=== PATIENT | male | born 1935 | race Caucasian/White ===

== ENCOUNTER 2017-04-23 18:30 | Inpatient (IN) | payer MEDICARE ==
[~2017-04-23] VITALS: Ht 167.6 cm; Wt 76.2 kg
[~2017-04-23 18:30] MED LIST: ASPI325; ASPI325 PO; Bystolic2.5 MG PO; CENTRUM SILVER1 EAC2 PO; CEPH500 PO; CLOP75 PO; FLUSAL5005 INH; GABA100 PO; LIDO700A20 TOP; MECL12.5 PO; METO50ER PO; Norco 5-325 Ta1 EACH PO; SENN187 PO; Zofran8 MG PO
[2017-04-23 19:50] LABS: BASOPHILS ABSOLUTE AUTO 0.01 K/mm3 (0.00-0.23); BASOPHILS PERCENT AUTO 0 % (0-2); EOSINOPHILS ABSOLUTE AUTO 0.17 K/mm3 (0.00-0.68); EOSINOPHILS PERCENT AUTO 3 % (0-6); Hematocrit 35.5 % (37.0-53.0); Hemoglobin 11.8 g/dL (13.5-17.5); IMMATURE GRAN ABSOLUTE AUTO 0.01 K/mm3 (0.00-0.10); IMMATURE GRAN PERCENT AUTO 0 % (0-1); LYMPHOCYTES ABSOLUTE AUTO 1.57 K/mm3 (0.84-5.20); LYMPHOCYTES PERCENT AUTO 28 % (21-46); MONOCYTES ABSOLUTE AUTO 0.33 K/mm3 (0.16-1.47); MONOCYTES PERCENT AUTO 6 % (4-13); Mean Corpuscular HGB 28.3 pg (26.0-34.0); Mean Corpuscular HGB Conc 33.2 g/dL (31.5-36.5); Mean Corpuscular Volume 85 fL (80-100); NEUTROPHILS ABSOLUTE AUTO 3.51 K/mm3 (1.96-9.15); NEUTROPHILS PERCENT AUTO 63 % (41-73); Platelet Count 273 K/mm3 (150-400); RDW Coefficient Variation 13.3 % (11.7-14.2); Red Blood Cell Count 4.17 M/mm3 (4.30-5.90)
[2017-04-23 20:06] LABS: Alanine Aminotransfer (ALT/SGP 15 U/L (12-78); Albumin/Globulin Ratio 0.8 (0.8-1.8); Alk Phos 90 U/L (50-136); Anion Gap 7 mmol/L (6-16); Aspartate Aminotrans (AST/SGOT 17 U/L (12-37); Bilirubin, Total 0.4 mg/dL (0.1-1.0); Blood Urea Nitrogen 10 mg/dL (8-24); Bun/Creatinine Ratio 11.6 (12.0-20.0); CO2, Blood 27 mmol/L (21-32); Chloride, Blood 105 mmol/L (98-108); Creatinine, Blood 0.86 mg/dL (0.60-1.20); Globulin, Blood 3.6 g/dL (2.2-4.0); Glomerular Filtration Rate >60 (60-); Glucose, Blood 87 mg/dL (70-99); Potassium, Blood 3.4 mmol/L (3.5-5.5); Sodium, Blood 139 mmol/L (136-145); Total Protein, Blood 6.6 g/dL (6.4-8.2)
[2017-04-23 20:41] LABS: Source, Urine Clean Catch
[2017-04-23 20:43] LABS: Appearance, Urine Cloudy (Clear); Bilirubin, Urine Neg (Neg); Blood, Urine 5+ (Neg); Color, Urine Yellow (P-Yellow); Glucose Qualitative, Urine Neg (Neg); Ketones, Urine 2+ (Neg); Leukocyte Esterase, Urine 3+ (Neg); Nitrite, Urine Pos (Neg); Protein, Urine 3+ (Neg); Specific Gravity, Urine 1.025 (1.003-1.022); Urobilinogen, Urine NORM (Normal)
[2017-04-23] MEDS ORDERED: CALCIUM 500 +1 EAC2 PO (20:46)
[2017-04-23 20:55] LABS: Bacteria Many /hpf; Squamous Epithelial Cells Not Seen /hpf (Few); White Blood Cells, Urine 50-100 /hpf (0-5)
[2017-04-24 05:16] LABS: BASOPHILS ABSOLUTE AUTO 0.01 K/mm3 (0.00-0.23); BASOPHILS PERCENT AUTO 0 % (0-2); EOSINOPHILS ABSOLUTE AUTO 0.21 K/mm3 (0.00-0.68); EOSINOPHILS PERCENT AUTO 4 % (0-6); Hematocrit 33.4 % (37.0-53.0); IMMATURE GRAN PERCENT AUTO 0 % (0-1); LYMPHOCYTES ABSOLUTE AUTO 1.63 K/mm3 (0.84-5.20); LYMPHOCYTES PERCENT AUTO 30 % (21-46); MONOCYTES ABSOLUTE AUTO 0.36 K/mm3 (0.16-1.47); MONOCYTES PERCENT AUTO 7 % (4-13); Mean Corpuscular HGB 28.2 pg (26.0-34.0); Mean Corpuscular HGB Conc 32.9 g/dL (31.5-36.5); Mean Corpuscular Volume 86 fL (80-100); Mean Platelet Volume 8.8 fL (9.1-12.4); NEUTROPHILS ABSOLUTE AUTO 3.29 K/mm3 (1.96-9.15); NEUTROPHILS PERCENT AUTO 60 % (41-73); Platelet Count 225 K/mm3 (150-400); RDW Coefficient Variation 13.5 % (11.7-14.2); RDW Standard Deviation 41.3 fL (35.1-46.3)
[2017-04-24 06:05] LABS: Anion Gap 10 mmol/L (6-16); Blood Urea Nitrogen 9 mg/dL (8-24); Bun/Creatinine Ratio 12.6 (12.0-20.0); CO2, Blood 24 mmol/L (21-32); Calcium, Blood 8.1 mg/dL (8.5-10.1); Chloride, Blood 106 mmol/L (98-108); Creatinine, Blood 0.72 mg/dL (0.60-1.20); Glomerular Filtration Rate >60 (60-); Glucose, Blood 88 mg/dL (70-99); Potassium, Blood 3.3 mmol/L (3.5-5.5); Sodium, Blood 140 mmol/L (136-145)
[2017-04-24 17:58] LABS: Source, Urine Catheter
[2017-04-24 18:05] LABS: Appearance, Urine Cloudy (Clear); Bilirubin, Urine Neg (Neg); Blood, Urine 5+ (Neg); Color, Urine Red (P-Yellow); Glucose Qualitative, Urine Neg (Neg); Ketones, Urine Neg (Neg); Leukocyte Esterase, Urine 3+ (Neg); Nitrite, Urine Neg (Neg); Protein, Urine 3+ (Neg); Urobilinogen, Urine NORM (Normal)
[2017-04-24 18:36] LABS: Red Blood Cells, Urine TNTC /hpf (0-2); White Blood Cells, Urine 50-100 /hpf (0-5)
[2017-04-24 18:37] LABS: Bacteria Few /hpf; Squamous Epithelial Cells Not Seen /hpf (Few)
[2017-04-26 06:09] LABS: Anion Gap 7 mmol/L (6-16); Blood Urea Nitrogen 9 mg/dL (8-24); Bun/Creatinine Ratio 11.3 (12.0-20.0); CO2, Blood 25 mmol/L (21-32); Calcium, Blood 8.4 mg/dL (8.5-10.1); Chloride, Blood 105 mmol/L (98-108); Glomerular Filtration Rate >60 (60-); Glucose, Blood 101 mg/dL (70-99); Sodium, Blood 137 mmol/L (136-145)
[2017-04-26] MEDS ORDERED: DOCU100 PO (12:24)
[2017-04-26] MEDS ORDERED: CENTRUM SILVER1 EAC2 PO (12:27)
[2017-04-26] MEDS ORDERED: MILK OF MAGNESIUM PO (12:27)
[2017-04-26] MEDS ORDERED: LEVFLO500 PO (12:28)
[2017-04-26] MEDS ORDERED: POTCHL10ER PO (12:28)
[2017-11-21] MEDS ORDERED: CEFP200 PO (14:22)
[2017-11-21] MEDS ORDERED: HYDR1TAB94 PO (14:36)
[2017-11-21] MEDS ORDERED: BAYER CHEWABLE81 MG PO (14:37)
[2017-11-21] MEDS ORDERED: TRAM50 PO (14:37)
[2017-11-21] MEDS ORDERED: MOVE FREE JOIN1 EACH PO (14:38)
[2017-11-21] MEDS ORDERED: POLY500 PO (14:38)
[2017-11-21] MEDS ORDERED: Hair, Skin & N1 EACH PO (14:38)
[2018-04-17] MEDS ORDERED: OXYC10TA19 PO (11:17)
== END 2017-04-26 14:02 | DRG 700 ==
LOC: ER 18:30 → MEDS 22:55
PROVIDERS: Emergency Medicine; Family Medicine; Internal Medicine
DX: T83.511A Infection and inflammatory reaction due to indwelling urethral catheter, initial encounter (principal); R31.9 Hematuria, unspecified; B96.1 Klebsiella pneumoniae [K. pneumoniae] as the cause of diseases classified elsewhere; N39.0 Urinary tract infection, site not specified; B96.89 Other specified bacterial agents as the cause of diseases classified elsewhere; R53.81 Other malaise; E87.6 Hypokalemia; G89.29 Other chronic pain; M54.5 Low back pain; R29.6 Repeated falls; I25.2 Old myocardial infarction; M54.32 Sciatica, left side; M54.31 Sciatica, right side; Z79.82 Long term (current) use of aspirin; Z79.899 Other long term (current) drug therapy; Z85.46 Personal history of malignant neoplasm of prostate
CPT/HCPCS: 36415; 70450; 71020; 72125; 72170; 80048; 80053; 81001; 84443; 85025; 87086; 96361; 96374; 96375; 97110; 97162; 97166; 97530; 97535; 99285; G8978; G8979; G8987; G8988; J0696; J1650; J2270; J7030; J7050

== ENCOUNTER 2017-06-11 13:13 | Emergency (ER) | payer MEDICARE ==
[~2017-06-11] VITALS: Ht 167.6 cm; Wt 78.5 kg
[~2017-06-11 13:13] MED LIST changes: +CALCIUM 500 +1 EAC2 PO; +DOCU100 PO; +LEVFLO500 PO; +MILK OF MAGNESIUM PO; +POTCHL10ER PO
[2017-06-11] MEDS ORDERED: ACET325 PO (13:40)
[2017-06-11] MEDS ORDERED: BENADRYL25 MG PO (13:41)
[2017-06-11] MEDS ORDERED: BISA10S PR (13:41)
[2017-06-11] MEDS ORDERED: CVS DISPOSABLE399 ML (13:42)
[2017-06-11] MEDS ORDERED: SENN187 PO (13:43)
[2017-06-11] MEDS ORDERED: PEDIA-LAX400 MG PO (13:43)
[2017-06-11] MEDS ORDERED: TRAM50 PO (13:44)
[2017-06-11 14:22] LABS: Source, Urine Voided
[2017-06-11 14:25] LABS: Appearance, Urine Bloody (Clear); Bilirubin, Urine Neg (Neg); Blood, Urine 4+ (Neg); Color, Urine Red (P-Yellow); Glucose Qualitative, Urine Neg (Neg); Ketones, Urine Neg (Neg); Leukocyte Esterase, Urine Neg (Neg); Nitrite, Urine Neg (Neg); Protein, Urine 4+ (Neg); Specific Gravity, Urine 1.015 (1.003-1.022); Urobilinogen, Urine NORM (Normal)
[2017-06-11 14:35] LABS: Calcium, Ionized (POC) 1.26 mmol/L (1.10-1.46); Chloride (POC) 98 mmol/L (98-108); Creatinine (POC) 0.8 mg/dL (0.8-1.3); Glucose (ISTAT POC) 132 mg/dL (70-99); Hemoglobin (POC) 11.9 g/dL (13.5-17.5); Potassium (POC) 3.6 mmol/L (3.5-5.5); Sodium (POC) 138 mmol/L (135-148); Total CO2 (POC) 24 mmol/L (21-32)
[2017-06-11 14:37] LABS: Bacteria Not Seen /hpf; Red Blood Cells, Urine TNTC /hpf (0-2); Squamous Epithelial Cells Not Seen /hpf (Few); White Blood Cells, Urine Not Seen /hpf (0-5)
[2017-06-11 15:23] LABS: BASOPHILS ABSOLUTE AUTO 0.02 K/mm3 (0.00-0.23); BASOPHILS PERCENT AUTO 0 % (0-2); EOSINOPHILS ABSOLUTE AUTO 0.01 K/mm3 (0.00-0.68); EOSINOPHILS PERCENT AUTO 0 % (0-6); Hematocrit 37.5 % (37.0-53.0); Hemoglobin 12.4 g/dL (13.5-17.5); IMMATURE GRAN ABSOLUTE AUTO 0.04 K/mm3 (0.00-0.10); IMMATURE GRAN PERCENT AUTO 0 % (0-1); LYMPHOCYTES ABSOLUTE AUTO 0.71 K/mm3 (0.84-5.20); LYMPHOCYTES PERCENT AUTO 7 % (21-46); MONOCYTES PERCENT AUTO 3 % (4-13); Mean Corpuscular HGB 28.1 pg (26.0-34.0); Mean Corpuscular HGB Conc 33.1 g/dL (31.5-36.5); Mean Corpuscular Volume 85 fL (80-100); Mean Platelet Volume 9.3 fL (9.1-12.4); NEUTROPHILS ABSOLUTE AUTO 9.14 K/mm3 (1.96-9.15); NEUTROPHILS PERCENT AUTO 90 % (41-73); Platelet Count 301 K/mm3 (150-400); RDW Coefficient Variation 14.5 % (11.7-14.2); RDW Standard Deviation 44.7 fL (35.1-46.3); Red Blood Cell Count 4.41 M/mm3 (4.30-5.90); White Blood Cell Count 10.22 K/mm3 (4.00-11.30)
[2017-06-11 16:28] LABS: Alanine Aminotransfer (ALT/SGP 13 U/L (12-78); Albumin, Blood 3.3 g/dL (3.4-5.0); Albumin/Globulin Ratio 0.9 (0.8-1.8); Alk Phos 88 U/L (50-136); Anion Gap 10 mmol/L (6-16); Aspartate Aminotrans (AST/SGOT 15 U/L (12-37); Bilirubin, Total 0.5 mg/dL (0.1-1.0); Blood Urea Nitrogen 12 mg/dL (8-24); Bun/Creatinine Ratio 16.9 (12.0-20.0); CO2, Blood 25 mmol/L (21-32); Calcium, Blood 9.6 mg/dL (8.5-10.1); Chloride, Blood 103 mmol/L (98-108); Creatinine, Blood 0.71 mg/dL (0.60-1.20); Globulin, Blood 3.7 g/dL (2.2-4.0); Glomerular Filtration Rate >60 (60-); Glucose, Blood 121 mg/dL (70-99); Potassium, Blood 3.6 mmol/L (3.5-5.5); Sodium, Blood 138 mmol/L (136-145)
[2017-11-21] MEDS ORDERED: CEFP200 PO (14:22)
[2017-11-21] MEDS ORDERED: HYDR1TAB94 PO (14:36)
[2017-11-21] MEDS ORDERED: TRAM50 PO (14:37)
[2017-11-21] MEDS ORDERED: BAYER CHEWABLE81 MG PO (14:37)
[2017-11-21] MEDS ORDERED: POLY500 PO (14:38)
[2017-11-21] MEDS ORDERED: Hair, Skin & N1 EACH PO (14:38)
[2017-11-21] MEDS ORDERED: MOVE FREE JOIN1 EACH PO (14:38)
== END 2017-06-11 18:12 | disposition short-term general hospital (02) ==
LOC: ER 13:13
PROVIDERS: Emergency Medicine
DX: R31.9 Hematuria, unspecified (principal); Z79.899 Other long term (current) drug therapy; Z79.82 Long term (current) use of aspirin; Z79.2 Long term (current) use of antibiotics
CPT/HCPCS: 36415; 51702; 76857; 80047; 80053; 81001; 85014; 85025; 96374; 96375; 96376; 99285; J1170; J2405

== ENCOUNTER 2017-07-02 19:39 | Emergency (ER) | payer MEDICARE ==
[~2017-07-02] VITALS: Ht 167.6 cm; Wt 72.6 kg
[~2017-07-02 19:39] MED LIST changes: +ACET325 PO; +BENADRYL25 MG PO; +BISA10S PR; +CVS DISPOSABLE399 ML; +PEDIA-LAX400 MG PO; +TRAM50 PO
[2017-07-02 20:19] LABS: Source, Urine Catheter
[2017-07-02 20:23] LABS: Appearance, Urine Turbid (Clear); Bilirubin, Urine Neg (Neg); Blood, Urine 5+ (Neg); Color, Urine Amber (P-Yellow); Glucose Qualitative, Urine Neg (Neg); Ketones, Urine Neg (Neg); Leukocyte Esterase, Urine 3+ (Neg); Nitrite, Urine Neg (Neg); Protein, Urine 3+ (Neg); Specific Gravity, Urine 1.015 (1.003-1.022); Urobilinogen, Urine NORM (Normal)
[2017-07-02] MEDS ORDERED: HYDR1TAB94 PO (20:25)
[2017-07-02] MEDS ORDERED: CYCL10 PO (20:27)
[2017-07-02] MEDS ORDERED: HYOS.125 PO (20:29)
[2017-07-02 20:37] LABS: Bacteria Mod /hpf; Red Blood Cells, Urine 25-50 /hpf (0-2); Squamous Epithelial Cells Rare /hpf (Few)
[2017-07-02] MEDS ORDERED: CEFP200 PO (20:49)
[2017-11-21] MEDS ORDERED: CEFP200 PO (14:22)
[2017-11-21] MEDS ORDERED: HYDR1TAB94 PO (14:36)
[2017-11-21] MEDS ORDERED: TRAM50 PO (14:37)
[2017-11-21] MEDS ORDERED: BAYER CHEWABLE81 MG PO (14:37)
[2017-11-21] MEDS ORDERED: MOVE FREE JOIN1 EACH PO (14:38)
[2017-11-21] MEDS ORDERED: POLY500 PO (14:38)
[2017-11-21] MEDS ORDERED: Hair, Skin & N1 EACH PO (14:38)
== END 2017-07-02 21:56 | disposition home or self-care (01) ==
LOC: ER 19:39
PROVIDERS: Emergency Medicine
DX: T83.091A Other mechanical complication of indwelling urethral catheter, initial encounter (principal); N39.0 Urinary tract infection, site not specified; N32.0 Bladder-neck obstruction; I25.10 Atherosclerotic heart disease of native coronary artery without angina pectoris; Z79.899 Other long term (current) drug therapy; Z79.82 Long term (current) use of aspirin
CPT/HCPCS: 51702; 51798; 81001; 87077; 87086; 87186; 99283

== ENCOUNTER 2017-07-30 23:34 | Emergency (ER) | payer MEDICARE ==
[~2017-07-30] VITALS: Ht 167.6 cm; Wt 72.6 kg
[~2017-07-30 23:34] MED LIST changes: +CEFP200 PO; +CYCL10 PO; +HYDR1TAB94 PO; +HYOS.125 PO
[2017-07-31 00:26] LABS: Source, Urine Catheter
[2017-07-31 00:28] LABS: Bilirubin, Urine Neg (Neg); Blood, Urine 5+ (Neg); Glucose Qualitative, Urine Neg (Neg); Ketones, Urine Neg (Neg); Leukocyte Esterase, Urine 3+ (Neg); Nitrite, Urine Pos (Neg); Protein, Urine 3+ (Neg); Urobilinogen, Urine NORM (Normal)
[2017-07-31 00:33] LABS: Appearance, Urine Cloudy (Clear); Color, Urine Amber (P-Yellow); White Blood Cells, Urine TNTC /hpf (0-5)
[2017-07-31 00:34] LABS: Red Blood Cells, Urine TNTC /hpf (0-2)
[2017-07-31 00:35] LABS: Bacteria Many /hpf; Squamous Epithelial Cells Not Seen /hpf (Few)
== END 2017-07-31 01:15 | disposition home or self-care (01) ==
LOC: ER 23:34
PROVIDERS: Emergency Medicine
DX: T83.091A Other mechanical complication of indwelling urethral catheter, initial encounter (principal); Z91.018 Allergy to other foods; Z79.899 Other long term (current) drug therapy; Z79.82 Long term (current) use of aspirin; Z85.46 Personal history of malignant neoplasm of prostate
CPT/HCPCS: 51702; 81001; 87077; 87086; 87147; 87186; 99283

== ENCOUNTER 2017-08-15 03:16 | Emergency (ER) | payer MEDICARE | END 2017-08-15 04:29 | disposition home or self-care (01) | LOC: ER 03:16 | DX: T83.091A Other mechanical complication of indwelling urethral catheter, initial encounter (principal); Z91.018 Allergy to other foods; Z79.82 Long term (current) use of aspirin; Z79.899 Other long term (current) drug therapy; Z79.891 Long term (current) use of opiate analgesic ==

== ENCOUNTER 2017-08-15 12:24 | Emergency (ER) | payer MEDICARE ==
[~2017-08-15] VITALS: Ht 167.6 cm; Wt 72.6 kg
[2017-08-15 13:27] LABS: Source, Urine Catheter
[2017-08-15 13:35] LABS: Appearance, Urine Hazy (Clear); Bilirubin, Urine Neg (Neg); Blood, Urine 5+ (Neg); Color, Urine Red (P-Yellow); Glucose Qualitative, Urine Neg (Neg); Ketones, Urine 1+ (Neg); Leukocyte Esterase, Urine Neg (Neg); Nitrite, Urine Neg (Neg); Protein, Urine 4+ (Neg); Specific Gravity, Urine 1.015 (1.003-1.022); Urobilinogen, Urine NORM (Normal)
[2017-08-15 13:42] LABS: Bacteria Not Seen /hpf; Red Blood Cells, Urine TNTC /hpf (0-2); Squamous Epithelial Cells Not Seen /hpf (Few); White Blood Cells, Urine Not Seen /hpf (0-5)
[2017-08-15 14:45] LABS: BASOPHILS ABSOLUTE AUTO 0.02 K/mm3 (0.00-0.23); BASOPHILS PERCENT AUTO 0 % (0-2); EOSINOPHILS PERCENT AUTO 2 % (0-6); Hematocrit 31.3 % (37.0-53.0); Hemoglobin 9.8 g/dL (13.5-17.5); IMMATURE GRAN ABSOLUTE AUTO 0.02 K/mm3 (0.00-0.10); IMMATURE GRAN PERCENT AUTO 0 % (0-1); LYMPHOCYTES ABSOLUTE AUTO 1.57 K/mm3 (0.84-5.20); LYMPHOCYTES PERCENT AUTO 25 % (21-46); MONOCYTES ABSOLUTE AUTO 0.39 K/mm3 (0.16-1.47); MONOCYTES PERCENT AUTO 6 % (4-13); Mean Corpuscular HGB 25.7 pg (26.0-34.0); Mean Corpuscular HGB Conc 31.3 g/dL (31.5-36.5); Mean Corpuscular Volume 82 fL (80-100); Mean Platelet Volume 8.9 fL (9.1-12.4); NEUTROPHILS ABSOLUTE AUTO 4.12 K/mm3 (1.96-9.15); NEUTROPHILS PERCENT AUTO 66 % (41-73); Platelet Count 288 K/mm3 (150-400); RDW Coefficient Variation 14.5 % (11.7-14.2); RDW Standard Deviation 42.5 fL (35.1-46.3); Red Blood Cell Count 3.81 M/mm3 (4.30-5.90); White Blood Cell Count 6.22 K/mm3 (4.00-11.30)
[2017-08-15 14:58] LABS: International Normalized Ratio 1.01; Prothrombin Time Results 10.5 Sec (9.7-11.5)
[2017-08-15 15:08] LABS: Alanine Aminotransfer (ALT/SGP 12 U/L (12-78); Albumin, Blood 2.8 g/dL (3.4-5.0); Albumin/Globulin Ratio 0.8 (0.8-1.8); Alk Phos 73 U/L (50-136); Anion Gap 6 mmol/L (6-16); Aspartate Aminotrans (AST/SGOT 16 U/L (12-37); Bilirubin, Total 0.4 mg/dL (0.1-1.0); Blood Urea Nitrogen 11 mg/dL (8-24); Bun/Creatinine Ratio 12.1 (12.0-20.0); CO2, Blood 27 mmol/L (21-32); Calcium, Blood 9.4 mg/dL (8.5-10.1); Chloride, Blood 105 mmol/L (98-108); Creatinine, Blood 0.91 mg/dL (0.60-1.20); Globulin, Blood 3.6 g/dL (2.2-4.0); Glomerular Filtration Rate >60 (60-); Glucose, Blood 87 mg/dL (70-99); Potassium, Blood 4.3 mmol/L (3.5-5.5); Sodium, Blood 138 mmol/L (136-145); Total Protein, Blood 6.4 g/dL (6.4-8.2)
== END 2017-08-15 17:14 | disposition home or self-care (01) ==
LOC: ER 12:24
PROVIDERS: Internal Medicine
DX: R31.9 Hematuria, unspecified (principal); Z46.6 Encounter for fitting and adjustment of urinary device; Z91.018 Allergy to other foods; Z79.899 Other long term (current) drug therapy; Z79.891 Long term (current) use of opiate analgesic; Z79.82 Long term (current) use of aspirin; Z85.46 Personal history of malignant neoplasm of prostate
CPT/HCPCS: 36415; 51700; 51702; 80053; 81001; 85025; 85610; 99283

== ENCOUNTER 2017-08-30 21:35 | Emergency (ER) | payer MEDICARE ==
[~2017-08-30] VITALS: Ht 167.6 cm; Wt 72.6 kg
[2017-08-30 22:46] LABS: Source, Urine Catheter
[2017-08-30 22:50] LABS: Bilirubin, Urine Neg (Neg); Blood, Urine 5+ (Neg); Glucose Qualitative, Urine Neg (Neg); Ketones, Urine Neg (Neg); Leukocyte Esterase, Urine 3+ (Neg); Nitrite, Urine Pos (Neg); Protein, Urine 4+ (Neg); Urobilinogen, Urine NORM (Normal)
[2017-08-30 22:51] LABS: Appearance, Urine Cloudy (Clear); Color, Urine Red (P-Yellow)
[2017-08-30 23:02] LABS: Bacteria Mod /hpf; Red Blood Cells, Urine TNTC /hpf (0-2); Squamous Epithelial Cells Not Seen /hpf (Few); White Blood Cells, Urine TNTC /hpf (0-5)
== END 2017-08-30 23:05 | disposition home or self-care (01) ==
LOC: ER 21:35
PROVIDERS: Emergency Medicine
DX: Z46.6 Encounter for fitting and adjustment of urinary device (principal); R32 Unspecified urinary incontinence; Z91.018 Allergy to other foods; Z79.899 Other long term (current) drug therapy
CPT/HCPCS: 51702; 51798; 81001; 87077; 87086; 87186; 99283

== ENCOUNTER 2017-11-13 04:38 | Emergency (ER) | payer MEDICARE ==
[~2017-11-13] VITALS: Ht 177.8 cm; Wt 95.2 kg
== END 2017-11-13 06:30 | disposition home or self-care (01) ==
LOC: ER 04:38
DX: Z46.6 Encounter for fitting and adjustment of urinary device (principal); Z91.018 Allergy to other foods; Z79.899 Other long term (current) drug therapy; Z85.46 Personal history of malignant neoplasm of prostate
CPT/HCPCS: 51702; 99283

== ENCOUNTER 2017-12-09 13:08 | Emergency (ER) | payer MEDICARE ==
[~2017-12-09] VITALS: Ht 167.6 cm; Wt 72.6 kg
[~2017-12-09 13:08] MED LIST changes: +BAYER CHEWABLE81 MG PO; +Hair, Skin & N1 EACH PO; +MOVE FREE JOIN1 EACH PO; +POLY500 PO
[2017-12-09 14:07] LABS: BASOPHILS ABSOLUTE AUTO 0.02 K/mm3 (0.00-0.23); BASOPHILS PERCENT AUTO 0 % (0-2); EOSINOPHILS PERCENT AUTO 5 % (0-6); Hematocrit 30.9 % (37.0-53.0); Hemoglobin 9.5 g/dL (13.5-17.5); IMMATURE GRAN ABSOLUTE AUTO 0.02 K/mm3 (0.00-0.10); IMMATURE GRAN PERCENT AUTO 0 % (0-1); LYMPHOCYTES PERCENT AUTO 37 % (21-46); MONOCYTES ABSOLUTE AUTO 0.28 K/mm3 (0.16-1.47); MONOCYTES PERCENT AUTO 5 % (4-13); Mean Corpuscular HGB 24.2 pg (26.0-34.0); Mean Corpuscular HGB Conc 30.7 g/dL (31.5-36.5); Mean Corpuscular Volume 79 fL (80-100); NEUTROPHILS ABSOLUTE AUTO 3.13 K/mm3 (1.96-9.15); NEUTROPHILS PERCENT AUTO 53 % (41-73); Platelet Count 266 K/mm3 (150-400); RDW Standard Deviation 45.4 fL (35.1-46.3); Red Blood Cell Count 3.92 M/mm3 (4.30-5.90); White Blood Cell Count 5.95 K/mm3 (4.00-11.30)
[2017-12-09 14:28] LABS: Anion Gap 6 mmol/L (6-16); Blood Urea Nitrogen 10 mg/dL (8-24); Bun/Creatinine Ratio 13.6 (12.0-20.0); CO2, Blood 29 mmol/L (21-32); Calcium, Blood 9.5 mg/dL (8.5-10.1); Chloride, Blood 107 mmol/L (98-108); Creatinine, Blood 0.74 mg/dL (0.60-1.20); Glomerular Filtration Rate >60 (60-); Glucose, Blood 102 mg/dL (70-99); Potassium, Blood 3.7 mmol/L (3.5-5.5); Sodium, Blood 142 mmol/L (136-145)
== END 2017-12-09 15:59 | disposition home or self-care (01) ==
LOC: ER 13:08
PROVIDERS: Nurse Practitioner Family
DX: R31.9 Hematuria, unspecified (principal); Z91.018 Allergy to other foods; Z79.899 Other long term (current) drug therapy; Z79.82 Long term (current) use of aspirin
CPT/HCPCS: 36415; 80048; 85025; 99283

== ENCOUNTER → 2017-12-16 | Outpatient (CLI) | payer MEDICARE ==
[2017-12-16 10:45] LABS: Source, Urine Catheter
[2017-12-16 11:10] LABS: Bilirubin, Urine Neg (Neg); Blood, Urine 5+ (Neg); Glucose Qualitative, Urine Neg (Neg); Ketones, Urine Neg (Neg); Leukocyte Esterase, Urine 3+ (Neg); Nitrite, Urine Pos (Neg); Protein, Urine 3+ (Neg); Urobilinogen, Urine NORM (Normal)
[2017-12-16 11:16] LABS: Appearance, Urine Turbid (Clear); Color, Urine Yellow (P-Yellow)
[2017-12-16 11:17] LABS: Amorphous Mod (0-Heavy); Bacteria Many /hpf; Mucus Light (0-Heavy); Squamous Epithelial Cells Few /hpf (Few)
[2017-12-16 11:18] LABS: Triple Phosphate Crystals Mod /hpf
== END ==
LOC: LAB SHORT 10:43 → LAB 10:43
PROVIDERS: Internal Medicine Hematology & Oncology
DX: R31.0 Gross hematuria (principal)
CPT/HCPCS: 81001

== ENCOUNTER 2017-12-19 03:18 | Emergency (ER) | payer MEDICARE ==
[~2017-12-19] VITALS: Ht 167.6 cm; Wt 71.2 kg
[2017-12-19 04:52] LABS: BASOPHILS ABSOLUTE AUTO 0.02 K/mm3 (0.00-0.23); BASOPHILS PERCENT AUTO 0 % (0-2); EOSINOPHILS ABSOLUTE AUTO 0.14 K/mm3 (0.00-0.68); EOSINOPHILS PERCENT AUTO 3 % (0-6); Hematocrit 30.4 % (37.0-53.0); Hemoglobin 9.3 g/dL (13.5-17.5); IMMATURE GRAN ABSOLUTE AUTO 0.01 K/mm3 (0.00-0.10); IMMATURE GRAN PERCENT AUTO 0 % (0-1); LYMPHOCYTES ABSOLUTE AUTO 1.17 K/mm3 (0.84-5.20); LYMPHOCYTES PERCENT AUTO 21 % (21-46); MONOCYTES ABSOLUTE AUTO 0.31 K/mm3 (0.16-1.47); MONOCYTES PERCENT AUTO 6 % (4-13); Mean Corpuscular HGB 24.2 pg (26.0-34.0); Mean Corpuscular HGB Conc 30.6 g/dL (31.5-36.5); Mean Corpuscular Volume 79 fL (80-100); Mean Platelet Volume 8.7 fL (9.1-12.4); NEUTROPHILS ABSOLUTE AUTO 4.02 K/mm3 (1.96-9.15); NEUTROPHILS PERCENT AUTO 71 % (41-73); Platelet Count 246 K/mm3 (150-400); RDW Coefficient Variation 16.7 % (11.7-14.2); RDW Standard Deviation 47.4 fL (35.1-46.3); Red Blood Cell Count 3.85 M/mm3 (4.30-5.90); White Blood Cell Count 5.67 K/mm3 (4.00-11.30)
[2017-12-19 05:09] LABS: Source, Urine Catheter
[2017-12-19 05:14] LABS: Bilirubin, Urine Neg (Neg); Blood, Urine 5+ (Neg); Glucose Qualitative, Urine Neg (Neg); Ketones, Urine Neg (Neg); Leukocyte Esterase, Urine 3+ (Neg); Nitrite, Urine Pos (Neg); Protein, Urine 3+ (Neg); Urobilinogen, Urine NORM (Normal)
[2017-12-19 05:24] LABS: Alanine Aminotransfer (ALT/SGP 13 U/L (12-78); Albumin, Blood 2.7 g/dL (3.4-5.0); Albumin/Globulin Ratio 0.7 (0.8-1.8); Alk Phos 92 U/L (50-136); Anion Gap 5 mmol/L (6-16); Aspartate Aminotrans (AST/SGOT 22 U/L (12-37); Bilirubin, Total 0.5 mg/dL (0.1-1.0); Blood Urea Nitrogen 10 mg/dL (8-24); Bun/Creatinine Ratio 12.4 (12.0-20.0); CO2, Blood 29 mmol/L (21-32); Calcium, Blood 9.8 mg/dL (8.5-10.1); Chloride, Blood 106 mmol/L (98-108); Creatinine, Blood 0.81 mg/dL (0.60-1.20); Globulin, Blood 3.8 g/dL (2.2-4.0); Glomerular Filtration Rate >60 (60-); Glucose, Blood 101 mg/dL (70-99); Potassium, Blood 3.5 mmol/L (3.5-5.5); Sodium, Blood 140 mmol/L (136-145); Total Protein, Blood 6.5 g/dL (6.4-8.2)
[2017-12-19 05:24] LABS: Appearance, Urine Cloudy (Clear)
[2017-12-19 05:25] LABS: Color, Urine Yellow (P-Yellow)
[2017-12-19 05:45] LABS: Amorphous Heavy (0-Heavy); Bacteria Many /hpf; Red Blood Cells, Urine 50-100 /hpf (0-2); Squamous Epithelial Cells Not Seen /hpf (Few); Triple Phosphate Crystals Mod /hpf; White Blood Cells, Urine 50-100 /hpf (0-5)
[2017-12-19] MEDS ORDERED: CEFP200 PO (05:56)
== END 2017-12-19 06:20 | disposition home or self-care (01) ==
LOC: ER 03:18
PROVIDERS: Emergency Medicine
DX: T83.091A Other mechanical complication of indwelling urethral catheter, initial encounter (principal); N39.0 Urinary tract infection, site not specified; I25.10 Atherosclerotic heart disease of native coronary artery without angina pectoris; Z91.018 Allergy to other foods; Z79.899 Other long term (current) drug therapy; Z79.82 Long term (current) use of aspirin
CPT/HCPCS: 36415; 80053; 81001; 83690; 85025; 87086; 99283

== ENCOUNTER 2018-01-09 00:05 | Day surgery (SDC) | payer MEDICARE ==
[2018-01-08 10:59] LABS: BASOPHILS ABSOLUTE AUTO 0.01 K/mm3 (0.00-0.23); BASOPHILS PERCENT AUTO 0 % (0-2); EOSINOPHILS PERCENT AUTO 0 % (0-6); Hematocrit 25.2 % (37.0-53.0); Hemoglobin 7.7 g/dL (13.5-17.5); IMMATURE GRAN PERCENT AUTO 1 % (0-1); LYMPHOCYTES ABSOLUTE AUTO 1.05 K/mm3 (0.84-5.20); LYMPHOCYTES PERCENT AUTO 13 % (21-46); MONOCYTES ABSOLUTE AUTO 0.42 K/mm3 (0.16-1.47); MONOCYTES PERCENT AUTO 5 % (4-13); Mean Corpuscular HGB 24.7 pg (26.0-34.0); Mean Corpuscular HGB Conc 30.6 g/dL (31.5-36.5); Mean Corpuscular Volume 81 fL (80-100); Mean Platelet Volume 10.2 fL (9.1-12.4); NEUTROPHILS ABSOLUTE AUTO 6.27 K/mm3 (1.96-9.15); NEUTROPHILS PERCENT AUTO 80 % (41-73); Platelet Count 108 K/mm3 (150-400); RDW Standard Deviation 48.2 fL (35.1-46.3); Red Blood Cell Count 3.12 M/mm3 (4.30-5.90); White Blood Cell Count 7.85 K/mm3 (4.00-11.30)
[2018-01-09] MEDS ORDERED: PREG50 PO (14:12)
== END 2018-01-09 16:10 | disposition home or self-care (01) ==
LOC: ATC 00:05 → LAB 00:05 → ATC 14:18
PROVIDERS: Internal Medicine Hematology & Oncology
DX: C34.80 Malignant neoplasm of overlapping sites of unspecified bronchus and lung (principal); C79.51 Secondary malignant neoplasm of bone; J45.909 Unspecified asthma, uncomplicated
CPT/HCPCS: 36415; 36430; 85025; 86850; 86900; 86901; 86923; J7030; P9016

== ENCOUNTER 2018-04-17 10:58 | Inpatient (IN) | payer MEDICARE ==
[~2018-04-17] VITALS: Ht 167.6 cm; Wt 82.0 kg
[~2018-04-17 10:58] MED LIST changes: +PREG50 PO
[2018-04-17] MEDS ORDERED: LEVFLO500 PO (11:16)
[2018-04-17] MEDS ORDERED: OXYC10TA19 PO ×2 (11:17→17:13)
[2018-04-17] MEDS ORDERED: ASPI325 PO (11:18)
[2018-04-17] MEDS ORDERED: Advair Hfa 230-12 GM INH (11:18)
[2018-04-17 12:07] LABS: BASOPHILS ABSOLUTE AUTO 0.02 K/mm3 (0.00-0.23); BASOPHILS PERCENT AUTO 0 % (0-2); EOSINOPHILS ABSOLUTE AUTO 0.06 K/mm3 (0.00-0.68); EOSINOPHILS PERCENT AUTO 1 % (0-6); Hematocrit 29.3 % (37.0-53.0); IMMATURE GRAN ABSOLUTE AUTO 0.02 K/mm3 (0.00-0.10); IMMATURE GRAN PERCENT AUTO 0 % (0-1); LYMPHOCYTES ABSOLUTE AUTO 0.33 K/mm3 (0.84-5.20); LYMPHOCYTES PERCENT AUTO 5 % (21-46); MONOCYTES ABSOLUTE AUTO 0.18 K/mm3 (0.16-1.47); MONOCYTES PERCENT AUTO 3 % (4-13); Mean Corpuscular HGB 28.3 pg (26.0-34.0); Mean Corpuscular HGB Conc 30.7 g/dL (31.5-36.5); Mean Corpuscular Volume 92 fL (80-100); Mean Platelet Volume 8.4 fL (9.1-12.4); NEUTROPHILS ABSOLUTE AUTO 6.33 K/mm3 (1.96-9.15); NEUTROPHILS PERCENT AUTO 91 % (41-73); Platelet Count 302 K/mm3 (150-400); RDW Coefficient Variation 15.7 % (11.7-14.2); RDW Standard Deviation 53.2 fL (35.1-46.3); Red Blood Cell Count 3.18 M/mm3 (4.30-5.90); White Blood Cell Count 6.94 K/mm3 (4.00-11.30)
[2018-04-17 12:28] LABS: Alanine Aminotransfer (ALT/SGP 21 U/L (12-78); Albumin, Blood 2.4 g/dL (3.4-5.0); Albumin/Globulin Ratio 0.6 (0.8-1.8); Alk Phos 101 U/L (50-136); Anion Gap 10 mmol/L (6-16); Aspartate Aminotrans (AST/SGOT 15 U/L (12-37); Bilirubin, Total 0.4 mg/dL (0.1-1.0); Blood Urea Nitrogen 16 mg/dL (8-24); Bun/Creatinine Ratio 22.7 (12.0-20.0); CO2, Blood 23 mmol/L (21-32); Calcium, Blood 8.1 mg/dL (8.5-10.1); Chloride, Blood 101 mmol/L (98-108); Creatinine, Blood 0.71 mg/dL (0.60-1.20); Globulin, Blood 4.3 g/dL (2.2-4.0); Glomerular Filtration Rate >60 (60-); Glucose, Blood 152 mg/dL (70-99); Potassium, Blood 4.3 mmol/L (3.5-5.5); Sodium, Blood 134 mmol/L (136-145); Total Protein, Blood 6.7 g/dL (6.4-8.2)
[2018-04-17 14:02] LABS: Source, Urine Catheter
[2018-04-17 14:05] LABS: Appearance, Urine Hazy (Clear); Bilirubin, Urine Neg (Neg); Blood, Urine 5+ (Neg); Color, Urine Yellow (P-Yellow); Glucose Qualitative, Urine Neg (Neg); Ketones, Urine Neg (Neg); Leukocyte Esterase, Urine 3+ (Neg); Nitrite, Urine Neg (Neg); Protein, Urine 1+ (Neg); Urobilinogen, Urine NORM (Normal)
[2018-04-17 14:19] LABS: White Blood Cells, Urine 50-100 /hpf (0-5)
[2018-04-17 14:21] LABS: Amorphous Light (0-Heavy); Bacteria Few /hpf; Squamous Epithelial Cells Not Seen /hpf (Few)
[2018-04-17 14:31] LABS: Influenza A Negative (NEGATIVE); Influenza B Negative (NEGATIVE)
[2018-04-17] MEDS ORDERED: HYDR1TAB94 PO (16:54)
[2018-04-17] MEDS ORDERED: TOLT2ER PO (17:13)
[2018-04-17] MEDS ORDERED: DEXA4 PO (17:14)
[2018-04-17] MEDS ORDERED: MECL12.5 PO (17:16)
[2018-04-18 04:54] LABS: BASOPHILS ABSOLUTE AUTO 0.02 K/mm3 (0.00-0.23); BASOPHILS PERCENT AUTO 0 % (0-2); EOSINOPHILS ABSOLUTE AUTO 0.06 K/mm3 (0.00-0.68); EOSINOPHILS PERCENT AUTO 1 % (0-6); Hematocrit 32.3 % (37.0-53.0); Hemoglobin 9.7 g/dL (13.5-17.5); IMMATURE GRAN ABSOLUTE AUTO 0.01 K/mm3 (0.00-0.10); IMMATURE GRAN PERCENT AUTO 0 % (0-1); LYMPHOCYTES ABSOLUTE AUTO 1.14 K/mm3 (0.84-5.20); LYMPHOCYTES PERCENT AUTO 23 % (21-46); MONOCYTES ABSOLUTE AUTO 0.32 K/mm3 (0.16-1.47); MONOCYTES PERCENT AUTO 7 % (4-13); Mean Corpuscular HGB 27.6 pg (26.0-34.0); Mean Corpuscular Volume 92 fL (80-100); Mean Platelet Volume 8.4 fL (9.1-12.4); NEUTROPHILS ABSOLUTE AUTO 3.41 K/mm3 (1.96-9.15); NEUTROPHILS PERCENT AUTO 69 % (41-73); Platelet Count 352 K/mm3 (150-400); RDW Coefficient Variation 15.2 % (11.7-14.2); RDW Standard Deviation 51.4 fL (35.1-46.3); Red Blood Cell Count 3.51 M/mm3 (4.30-5.90); White Blood Cell Count 4.96 K/mm3 (4.00-11.30)
[2018-04-20 04:57] LABS: BASOPHILS ABSOLUTE AUTO 0.01 K/mm3 (0.00-0.23); BASOPHILS PERCENT AUTO 0 % (0-2); EOSINOPHILS ABSOLUTE AUTO 0.01 K/mm3 (0.00-0.68); EOSINOPHILS PERCENT AUTO 0 % (0-6); Hematocrit 29.5 % (37.0-53.0); Hemoglobin 8.9 g/dL (13.5-17.5); IMMATURE GRAN ABSOLUTE AUTO 0.01 K/mm3 (0.00-0.10); IMMATURE GRAN PERCENT AUTO 0 % (0-1); LYMPHOCYTES ABSOLUTE AUTO 0.67 K/mm3 (0.84-5.20); LYMPHOCYTES PERCENT AUTO 25 % (21-46); MONOCYTES ABSOLUTE AUTO 0.28 K/mm3 (0.16-1.47); MONOCYTES PERCENT AUTO 10 % (4-13); Mean Corpuscular HGB 27.7 pg (26.0-34.0); Mean Corpuscular HGB Conc 30.2 g/dL (31.5-36.5); Mean Corpuscular Volume 92 fL (80-100); Mean Platelet Volume 8.4 fL (9.1-12.4); NEUTROPHILS ABSOLUTE AUTO 1.71 K/mm3 (1.96-9.15); NEUTROPHILS PERCENT AUTO 64 % (41-73); Platelet Count 305 K/mm3 (150-400); RDW Coefficient Variation 14.9 % (11.7-14.2); RDW Standard Deviation 50.3 fL (35.1-46.3); Red Blood Cell Count 3.21 M/mm3 (4.30-5.90); White Blood Cell Count 2.69 K/mm3 (4.00-11.30)
== END 2018-04-22 11:35 | disposition home or self-care (01) | DRG 699 ==
LOC: ER 10:58 → ERHOLD 10:59 → MEDS 16:33
PROVIDERS: Emergency Medicine; Hospitalist
DX: T83.511A Infection and inflammatory reaction due to indwelling urethral catheter, initial encounter (principal); E87.1 Hypo-osmolality and hyponatremia; C34.90 Malignant neoplasm of unspecified part of unspecified bronchus or lung; N39.0 Urinary tract infection, site not specified; I25.10 Atherosclerotic heart disease of native coronary artery without angina pectoris; B96.5 Pseudomonas (aeruginosa) (mallei) (pseudomallei) as the cause of diseases classified elsewhere; Z66 Do not resuscitate; Z92.21 Personal history of antineoplastic chemotherapy; Z92.3 Personal history of irradiation; Z85.46 Personal history of malignant neoplasm of prostate; Z79.82 Long term (current) use of aspirin; Z79.51 Long term (current) use of inhaled steroids; Z79.899 Other long term (current) drug therapy
CPT/HCPCS: 36415; 71046; 73502; 80053; 81001; 83605; 85025; 87040; 87077; 87086; 87186; 87493; 87804; 93005; 93010; 94640; 94760; 96365; 96372; 97110; 97116; 97161; 97166; 97530; 97535; 99285-25; G0378; G8978; G8979; G8987; G8988; J0696; J0713; J1650; J2185; J7030

== ENCOUNTER 2018-05-03 08:47 | Emergency (ER) | payer MEDICARE ==
[~2018-05-03] VITALS: Ht 167.6 cm; Wt 81.7 kg
[~2018-05-03 08:47] MED LIST changes: +Advair Hfa 230-12 GM INH; +OXYC10TA19 PO; -PREG50 PO
[2018-05-03 08:59] LABS: Source, Urine Clean Catch
[2018-05-03 09:07] LABS: Bilirubin, Urine Neg (Neg); Blood, Urine 5+ (Neg); Glucose Qualitative, Urine Neg (Neg); Ketones, Urine 1+ (Neg); Leukocyte Esterase, Urine 3+ (Neg); Nitrite, Urine Neg (Neg); Protein, Urine 3+ (Neg); Urobilinogen, Urine 1+ (Normal)
[2018-05-03 09:15] LABS: Appearance, Urine Cloudy (Clear); Color, Urine Yellow (P-Yellow); Red Blood Cells, Urine TNTC /hpf (0-2); White Blood Cells, Urine TNTC /hpf (0-5)
[2018-05-03 09:16] LABS: Amorphous Heavy (0-Heavy); Bacteria Many /hpf; Squamous Epithelial Cells Not Seen /hpf (Few)
[2018-05-03 09:16] LABS: BASOPHILS ABSOLUTE AUTO 0.02 K/mm3 (0.00-0.23); BASOPHILS PERCENT AUTO 0 % (0-2); EOSINOPHILS ABSOLUTE AUTO 0.15 K/mm3 (0.00-0.68); EOSINOPHILS PERCENT AUTO 2 % (0-6); Hemoglobin 9.4 g/dL (13.5-17.5); IMMATURE GRAN ABSOLUTE AUTO 0.04 K/mm3 (0.00-0.10); IMMATURE GRAN PERCENT AUTO 1 % (0-1); LYMPHOCYTES ABSOLUTE AUTO 0.92 K/mm3 (0.84-5.20); LYMPHOCYTES PERCENT AUTO 11 % (21-46); MONOCYTES ABSOLUTE AUTO 0.61 K/mm3 (0.16-1.47); MONOCYTES PERCENT AUTO 7 % (4-13); Mean Corpuscular HGB 27.2 pg (26.0-34.0); Mean Corpuscular HGB Conc 31.3 g/dL (31.5-36.5); Mean Platelet Volume 8.6 fL (9.1-12.4); NEUTROPHILS ABSOLUTE AUTO 6.78 K/mm3 (1.96-9.15); NEUTROPHILS PERCENT AUTO 80 % (41-73); Platelet Count 274 K/mm3 (150-400); RDW Coefficient Variation 15.7 % (11.7-14.2); RDW Standard Deviation 49.7 fL (35.1-46.3); Red Blood Cell Count 3.46 M/mm3 (4.30-5.90); White Blood Cell Count 8.52 K/mm3 (4.00-11.30)
[2018-05-03 09:17] LABS: Calcium Oxalate Crystals Rare /hpf
[2018-05-03 09:18] LABS: Mean Corpuscular Volume 87 fL (80-100)
[2018-05-03 09:43] LABS: Alanine Aminotransfer (ALT/SGP 34 U/L (12-78); Albumin, Blood 2.3 g/dL (3.4-5.0); Albumin/Globulin Ratio 0.5 (0.8-1.8); Alk Phos 112 U/L (50-136); Anion Gap 8 mmol/L (6-16); Aspartate Aminotrans (AST/SGOT 22 U/L (12-37); Bilirubin, Total 0.4 mg/dL (0.1-1.0); Blood Urea Nitrogen 20 mg/dL (8-24); CO2, Blood 23 mmol/L (21-32); Calcium, Blood 8.2 mg/dL (8.5-10.1); Chloride, Blood 101 mmol/L (98-108); Creatinine, Blood 0.77 mg/dL (0.60-1.20); Globulin, Blood 4.4 g/dL (2.2-4.0); Glomerular Filtration Rate >60 (60-); Glucose, Blood 93 mg/dL (70-99); Potassium, Blood 3.6 mmol/L (3.5-5.5); Sodium, Blood 132 mmol/L (136-145); Total Protein, Blood 6.7 g/dL (6.4-8.2)
[2018-05-03] MEDS ORDERED: CIPRO500 MG PO (11:41)
[2018-06-11] MEDS ORDERED: **INCOMPLETE MED REC (15:51)
[2018-06-11] MEDS ORDERED: DEXA4 PO (16:33)
[2018-06-11] MEDS ORDERED: Hair, Skin & N1 EACH PO (16:33)
[2018-06-11] MEDS ORDERED: OXYC10TA19 PO (16:34)
[2018-06-11] MEDS ORDERED: PREG50 PO (16:35)
[2018-06-11] MEDS ORDERED: SERT25 PO (16:36)
[2018-06-11] MEDS ORDERED: TOLT2ER PO (16:38)
[2018-06-11] MEDS ORDERED: MS Contin15 MG PO (17:00)
[2018-06-11] MEDS ORDERED: XARELTO15 MG PO (17:00)
[2018-06-11] MEDS ORDERED: SENN187 PO (17:07)
[2018-06-11] MEDS ORDERED: MYRBETRIQ25 MG PO (17:29)
[2018-06-11] MEDS ORDERED: LIDOCAINE VISCOUS 2% TOP (17:34)
== END 2018-05-03 12:30 | disposition home or self-care (01) ==
LOC: ER 08:47
PROVIDERS: Physician Assistant
DX: S32.9XXA Fracture of unspecified parts of lumbosacral spine and pelvis, initial encounter for closed fracture (principal); N39.0 Urinary tract infection, site not specified; R33.9 Retention of urine, unspecified; Z85.46 Personal history of malignant neoplasm of prostate; X58.XXXA Exposure to other specified factors, initial encounter
CPT/HCPCS: 36415; 51702; 51798; 76857; 80053; 81001; 83605; 85025; 87086; 99284-25

== ENCOUNTER 2018-05-08 18:36 | Inpatient (IN) | payer MEDICARE ==
[~2018-05-08] VITALS: Ht 172.7 cm; Wt 78.9 kg
[~2018-05-08 18:36] MED LIST changes: +CIPRO500 MG PO
[2018-05-08 19:24] LABS: Hematocrit 31.3 % (37.0-53.0); Hemoglobin 9.5 g/dL (13.5-17.5); Mean Corpuscular HGB 26.8 pg (26.0-34.0); Mean Corpuscular HGB Conc 30.4 g/dL (31.5-36.5); Mean Corpuscular Volume 88 fL (80-100); Mean Platelet Volume 8.8 fL (9.1-12.4); Platelet Count 313 K/mm3 (150-400); RDW Coefficient Variation 15.7 % (11.7-14.2); RDW Standard Deviation 51.6 fL (35.1-46.3); Red Blood Cell Count 3.54 M/mm3 (4.30-5.90); White Blood Cell Count 12.39 K/mm3 (4.00-11.30)
[2018-05-08 19:46] LABS: Anion Gap 7 mmol/L (6-16); Blood Urea Nitrogen 19 mg/dL (8-24); Bun/Creatinine Ratio 24.9 (12.0-20.0); CO2, Blood 25 mmol/L (21-32); Calcium, Blood 8.5 mg/dL (8.5-10.1); Chloride, Blood 98 mmol/L (98-108); Creatinine, Blood 0.76 mg/dL (0.60-1.20); Glomerular Filtration Rate >60 (60-); Glucose, Blood 195 mg/dL (70-99); Sodium, Blood 130 mmol/L (136-145)
[2018-05-08 20:20] LABS: BAND PERCENT MAN 5 % (0-8); BASOPHILS PERCENT MAN 0 % (0-2); EOSINOPHILS PERCENT MAN 0 % (0-6); LYMPHOCYTES ABSOLUTE MAN 0.37 K/mm3 (0.84-5.20); LYMPHOCYTES PERCENT MAN 3 % (21-46); MONOCYTES PERCENT MAN 0 % (4-13); NEUTROPHILS ABSOLUTE MAN 12.01 K/mm3 (1.96-9.15); SEG NEUTROPHILS PERCENT MAN 92 % (41-73); TOTAL CELLS COUNTED 100
[2018-05-08 21:16] LABS: Source, Urine Catheter
[2018-05-08] MEDS ORDERED: CYAN500 PO (21:17)
[2018-05-08] MEDS ORDERED: CHOL10002 PO (21:17)
[2018-05-08 21:20] LABS: Bilirubin, Urine Neg (Neg); Blood, Urine 4+ (Neg); Glucose Qualitative, Urine Neg (Neg); Ketones, Urine 1+ (Neg); Leukocyte Esterase, Urine 3+ (Neg); Nitrite, Urine Pos (Neg); Protein, Urine 3+ (Neg); Urobilinogen, Urine 2+ (Normal)
[2018-05-08 21:22] LABS: Appearance, Urine Hazy (Clear); Color, Urine Yellow (P-Yellow)
[2018-05-08 21:27] LABS: White Blood Cells, Urine 25-50 /hpf (0-5)
[2018-05-08 21:29] LABS: Bacteria Rare /hpf; Squamous Epithelial Cells Not Seen /hpf (Few)
--- NOTE | 2018-05-08 23:48 | NUR ---
PT HAS A HX OF BEING A VERY DIFFICULT HELMS CATHETER INSERTION. PT HAS CHRONIC INDWELLING HELMS CATHETER. HELMS WAS REPLACED THIS Saturday05/03/18 IN OUR EMERGENCY DEPARTMENT. URINE WAS SENT BOTH THEN AND THIS ADMISSION. SPOKE W/ CLINICAL COORDINATOR/ROUTE DELIVERY MANAGERCLARITZA GOMEZ WHO STATED TO LEAVE CURRENT HELMS CATHETER IN PLACE.
[2018-05-09 05:08] LABS: BASOPHILS ABSOLUTE AUTO 0.01 K/mm3 (0.00-0.23); BASOPHILS PERCENT AUTO 0 % (0-2); EOSINOPHILS ABSOLUTE AUTO 0.01 K/mm3 (0.00-0.68); EOSINOPHILS PERCENT AUTO 0 % (0-6); Hematocrit 27.7 % (37.0-53.0); Hemoglobin 8.5 g/dL (13.5-17.5); IMMATURE GRAN ABSOLUTE AUTO 0.05 K/mm3 (0.00-0.10); IMMATURE GRAN PERCENT AUTO 1 % (0-1); LYMPHOCYTES PERCENT AUTO 7 % (21-46); MONOCYTES ABSOLUTE AUTO 0.41 K/mm3 (0.16-1.47); MONOCYTES PERCENT AUTO 4 % (4-13); Mean Corpuscular HGB 26.5 pg (26.0-34.0); Mean Corpuscular HGB Conc 30.7 g/dL (31.5-36.5); Mean Corpuscular Volume 86 fL (80-100); Mean Platelet Volume 8.9 fL (9.1-12.4); NEUTROPHILS ABSOLUTE AUTO 9.63 K/mm3 (1.96-9.15); NEUTROPHILS PERCENT AUTO 89 % (41-73); Platelet Count 301 K/mm3 (150-400); RDW Coefficient Variation 15.9 % (11.7-14.2); RDW Standard Deviation 50.4 fL (35.1-46.3); Red Blood Cell Count 3.21 M/mm3 (4.30-5.90); White Blood Cell Count 10.81 K/mm3 (4.00-11.30)
[2018-05-09 05:43] LABS: Anion Gap 9 mmol/L (6-16); Blood Urea Nitrogen 19 mg/dL (8-24); Bun/Creatinine Ratio 29.4 (12.0-20.0); CO2, Blood 22 mmol/L (21-32); Calcium, Blood 7.9 mg/dL (8.5-10.1); Chloride, Blood 102 mmol/L (98-108); Creatinine, Blood 0.65 mg/dL (0.60-1.20); Glomerular Filtration Rate >60 (60-); Glucose, Blood 86 mg/dL (70-99); Potassium, Blood 3.8 mmol/L (3.5-5.5); Sodium, Blood 133 mmol/L (136-145)
--- NOTE | 2018-05-09 05:57 | NUR ---
SHIFT SUMMARY PT NEW ED ADMIT THIS EVENING. PT REPORTS HERE JUST LAST WEEK FOR THE SAME PROBLEM. 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 PT AND PCP HAVE BEEN ATTEMPTING TO MANAGE A UTI OUTPATIENTLY BUT HAVE BEEN UNSUCCESSFUL. PT HAD HELMS PRESENT ON ADMISSION. THE CATHETER WAS REPLACED BY OUR ED 05/03/17 AND INSERTION IS VERY DIFFICULT WITH PATIENT. DUE TO THIS, DECISION WAS MADE TO LEAVE CURRENT HELMS CATHETER IN PLACE. URINE DARK LANDRY. PT HAS NOT BEEN OUT OF BED SINCE ADMISSION. PT AND REPORT THAT PT AT HOME AMBULATES VERY LITTLE. ONLY ABLE TO USE A WALKER TO PIVOT FROM CHAIR TO BED AND WHEELCHAIR AND VICE VERSA. PT HAS CHRONIC SEVERE NEUROPATHY AND PREVIOUS PELVIC FX AND BACK FUSIONS THAT MAKE IT DIFFICULT AND PAINFUL FOR HIM TO AMBULATE. PT ON CHRONIC PAIN MEDICATION, 10 MG ROXICODONE Q 6HRS. PT HAS RECIEVED ONE DOSE SO FAR THIS EVENING. FEBRILE THIS AM WITH TEMPERATURE OF 100.5. MEDICATED W/ 635 MG TYLENOL AND TEMPERATURE CAME DOWN TO 99.3 DEGREES. OTHERWISE VSS. PT RESTING IN BED AT THIS TIME. NO OTHER ACUTE EVENTS. WILL CONTINUE TO MONITOR.
--- NOTE | 2018-05-09 17:13 | NUR ---
SHIFT SUMMARY PT IS ALERT AND ORIENTED AND COOPERATIVE WITH CARE. PT HAS A CHRONIC INDWELLING CATHETER. HE IS INCONTINENT OF BOWELS DUE TO A LACK OF SENSATION ACCORDING TO HIM, ATTENDS IN PLACE AND CHANGED NEEDED. PT CAN DANGLE ON THE SIDE OF THE BED FOR MEALS WITH MINIMAL ASSISTANCE. COMPLAINS OF PAIN IN THE PELVIC REGION AND TREATED PER ORDERS. CONTACT ISOLATION FOR MRSA IN URINE. NO ACUTE CHANGES THIS SHIFT. WILL CONTINUE TO MONITOR.
--- NOTE | 2018-05-10 18:16 | NUR ---
PT STARTED SHIFT AOX3 VERY UNHAPPY AND IN PAIN. PT WAS ALSO VERY TEARFUL. PT WAS SUPPORTED WITH EMOTIONAL CARE AND PAIN MEDICATIONS WERE SCHEDULED INSTEAD OF PRN PER DR ENG. PT SEEMED TO GET BETTER WITH AT BEDSIDE AND BY THIS TIME HAS SETTLED IN WELL WITH CARE. PT STATED HE FELT MUCH BETTER. WILL MONITOR. PT HAS STAYED IN BED TODAY.
--- NOTE | 2018-05-11 06:13 | NUR ---
SHIFT SUMMARY PT SLEPT MAJORITY OF SHIFT. PT HAD SOME COMPLAINTS OF DISCOMFORT AROUND SCHEDULED TIME FOR MEDS. PT TX PER EMAR WITH GOOD RESPONSE. PT HAD NO ACUTE ISSUES NOTED AND IS CURRENTLY SLEEPING. PT IS BREATHING EASY WITH CALL LIGHT IN REACH.
--- NOTE | 2018-05-11 17:27 | NUR ---
PT AOX4 AND COOPERATIVE OF CARE. PT WILL AT TIMES GET A BIT SHORT WITH HIS NURSES, BUT CAN BE REDIRECTED AND THEN SEEMS TO BE ABLE TO BE PLEASANT. PT HAS HAD FAMILY WITH HIM TODAY. PT DID HAVE A TEMP OF 100.3 AND WAS GIVEN TYLENOL BRING IT DOWN TO 99.5. PT IS ALSO TREATED FOR PAIN PER EMAR. NO DISTRESS NOTED WILL MONITOR.
--- NOTE | 2018-05-12 07:25 | NUR ---
SHIFT SUMMARY PT HAS SLEPT FOR MAJORITY OF SHIFT. PT WAS PLEASENT WHEN HE WAS AWAKE. PT HAD NO ACUTE ISSUES NOTED. PT PAIN WAS MANAGED WELL. PT IS BREATHING EASY WITH CALL LIGHT IN REACH.
[2018-05-12 14:47] LABS: Source, Urine Catheter
[2018-05-12 14:54] LABS: Appearance, Urine Turbid (Clear); Bilirubin, Urine Neg (Neg); Blood, Urine 5+ (Neg); Color, Urine Yellow (P-Yellow); Glucose Qualitative, Urine Neg (Neg); Ketones, Urine 1+ (Neg); Leukocyte Esterase, Urine 3+ (Neg); Nitrite, Urine Neg (Neg); Protein, Urine 3+ (Neg); Urobilinogen, Urine NORM (Normal); pH, Urine 6.5 (5.0-8.0)
[2018-05-12 15:07] LABS: Bacteria Many /hpf; Red Blood Cells, Urine 25-50 /hpf (0-2); Squamous Epithelial Cells Not Seen /hpf (Few); White Blood Cells, Urine TNTC /hpf (0-5)
--- NOTE | 2018-05-12 16:14 | NUR ---
SHIFT SUMMARY NO ACUTE CHANGES. PATIENT MEDICATED FOR PAIN SCHEDULED AND PRN SEVERAL TIMES DURING SHIFT. TURNING AND REPOSITIONING IS PAINFUL FOR PATIENT. CHRONIC INDWELLING HELMS REPLACED PER PROTOCOL TODAY. PATIENT NAPPED FREQUENTLY DURING SHOFT. CALL LIGHT IN REACH, WILL CONTINUE TO MONITOR.
--- NOTE | 2018-05-13 04:51 | NUR ---
VSS, AFEBRILE, A/O, SLEEPY AT TIMES, 20G R FA, OFTEN AT THE BEDSIDE, IVABX, HELMS, PMHX: PELVIC CA W/METS
--- NOTE | 2018-05-13 06:05 | NUR ---
PT'S HELMS LEAKED OVER NOC INTO HIS BRIEF. THE BRIEF IS SATURATED, INDICATING THAT THE AMOUNT OF URINE IN THE HELMS BAG IS NOT AN ACCURATE INDICATION OF HIS OUTPUT. PT ALSO HAS A RED RASH ON HIS GROIN AREA. HOUSE ZINC BASED CREAM HAS BEEN APPLIED BUT PT MIGHT REQUIRE SOME NYSTATIN POWDER TO CLEAR UP THAT RASH. WILL REPORT TO ON-COMING SHIFT.
--- NOTE | 2018-05-13 17:28 | NUR ---
SHIFT SUMMARY NO ACUTE CHANGES. PATIENT MEDICATED FOR PAIN SCHEDULED, WITH NO PRN PAIN MEDICATION NEEDED THIS SHIFT. PATIENT STATES HE IS FEELING BETTER. PATIENT SAT ON SIDE OF BED AND STOOD FOR A FEW MINUTES WITH WALKER BUT DID NOT FEEL STRONG ENOUGH TO WALK. CALL LIGHT IN REACH, WILL CONTINUE TO MONITOR.
--- NOTE | 2018-05-14 05:06 | NUR ---
VSS, AFEBRILE, A/O, UPPER [place], 20G R FA, CHRONIC HELMS, LEAKS SOMETIMES. PMHX: PELVIC CA W/METS. SLEPT WELL. AUGUST D/C TO HOME HEALTH EVENTUALLY
--- NOTE | 2018-05-14 12:35 | NUR ---
Initial Visit: Palliative Care consult for AD/POLST. Pt resting in bed upon arrival. He denies pain at this time and reports his pain is managed with current regimen. Pt is pleasant and A&O. His Milvia is present during visit. Engaged in therapeutic conversation about his goals of care. Pt reports his cancer is not currable and states Dr Ramos is doing a great job of slowing the growth and allowing him more time. Pt reports that he receives care from [facility] and has support from his and daughter. Reviewed POLST that is on file with hospital with Pt and he reports his wishes have changed. Delivered new POLST and educated Pt on each section as he completed form. Pt chose DNR, limited treatment, and no artificial nutrition by tube. Pt expressed concerns about receiving IV antibiotics 3 times a day and what his options are. No other concerns at this time. Spoke with Dr Collazo and he reports that he will order DNR status and will sign POLST at a later time. Spoke with Pt's nurse Michelle and she reports no concerns at this time. She reports that she will remind Dr Collazo to sign new completed POLST. Plan is to obtain copy of POLST once signed and fax to medical records and [place] POLST Registry. [employer] will arrange plan for IV antibiotic treatment for Pt upon discharge. Will remain available.
--- NOTE | 2018-05-14 17:09 | NUR ---
SHIFT SUMMARY NO CHANGES IN ASSESSMENT AT THIS TIME. VSS. DISCAHRGED PLANNED FOR SATURDAY. PT HAS ONLY NEEDED PRN PAIN MEDS ONCE THIS SHIFT. HELMS CATHETER DRAINING & INTACT. PT & SPOUSE EDUCATED ON PLAN FOR DISCHARGE. SEE DISCHARGE PLANNNER NOTE. PT CURRENTLY RESTING IN BED WITH CALL LIGHT IN REACH. WILL CONTINUE TO MONITOR UNTIL TURNOVER IS COMPLETE.
[2018-05-14 17:33] LABS: Creatinine, Blood 0.62 mg/dL (0.60-1.20); Vancomycin, Trough 6.8 ug/mL (5.0-10.0)
--- NOTE | 2018-05-15 04:41 | NUR ---
SHIFT SUMMARY PATIENT HAD NO ACUTE CHANGES OBSERVED THIS SHIFT. AXOX 3 AND ONE PERSON TO BSC. PIV REMAINS INTACT. SCHEDULE OXY GIVEN PER EMAR. IV ABX INFUSED. VSS/AFEBRILE. CHRONIC HELMS CATHETER LEAKS AT TIMES. COOPERATIVE WITH CARE. DENIES SOB AND N/V. CALL LIGHT IN REACH. BED IN LOWEST POSTION. WILL CONTINUE TO MONITOR UNTIL DAY SHIFT NURSE ASSUMES CARE.
[2018-05-15 06:04] LABS: Hematocrit 32.3 % (37.0-53.0); Hemoglobin 9.7 g/dL (13.5-17.5); Mean Corpuscular HGB 26.4 pg (26.0-34.0); Mean Corpuscular Volume 88 fL (80-100); Mean Platelet Volume 8.9 fL (9.1-12.4); Platelet Count 375 K/mm3 (150-400); RDW Coefficient Variation 15.6 % (11.7-14.2); RDW Standard Deviation 50.1 fL (35.1-46.3); Red Blood Cell Count 3.68 M/mm3 (4.30-5.90); White Blood Cell Count 6.92 K/mm3 (4.00-11.30)
[2018-05-15 06:25] LABS: Anion Gap 7 mmol/L (6-16); Blood Urea Nitrogen 17 mg/dL (8-24); CO2, Blood 28 mmol/L (21-32); Calcium, Blood 7.6 mg/dL (8.5-10.1); Chloride, Blood 101 mmol/L (98-108); Creatinine, Blood 0.71 mg/dL (0.60-1.20); Glomerular Filtration Rate >60 (60-); Glucose, Blood 66 mg/dL (70-99); Potassium, Blood 3.8 mmol/L (3.5-5.5); Sodium, Blood 136 mmol/L (136-145)
--- NOTE | 2018-05-15 16:41 | NUR ---
SHIFT SUMMARY NO CHANGES IN ASSESSMENT AT THIS TIME. PT HAS NOT NEEDED ANY PRN PAIN MEDICATION THIS SHIFT. VSS. POWERGLIDE PLACED IN ALEX FOR DC TOMORROW. AT BEDSIDE THE MAJORITY OF THE DAY. NO OTHER COMPLAINTS BY PATIENT OR FAMILY. WILL CONTINUE TO MONITOR UNTIL TURNOVER IS COMPLETE.
--- NOTE | 2018-05-16 04:16 | NUR ---
SHIFT SUMMARY PATIENT HAD NO ACUTE CHANGES OBSERVED THIS SHIFT. AXOX 3 AND ONE ASSIST TO BSC. POWERGLIDE ALEX REMAINS INTACT. IV ABX INFUSED. HELMS PATENT AND DRAINING. SCHEDULE OXY GIVEN PER EMAR. VSS/AFEBRILE. DENIES SOB AND N/V. BED IN LOWEST POSITION. CALL LIGHT IN REACH. WILL CONTINUE TO MONITOR UNTIL DAY SHIFT NURSE ASSUMES CARE.
[2018-05-16 18:03] LABS: Vancomycin, Trough 9.9 ug/mL (5.0-10.0)
--- NOTE | 2018-05-16 19:21 | NUR ---
PT PLEASANT TODAY. HAS STATED PAIN MANAGED WELL WITH SCHEDULED MED. IS KEEPING AT OR BELOW 3-4. SOME CONCERNS ABOUT HOME IV INFUSION, DISCUSSED AND ENCOURAGED. THEY WILL ASSIST UNTIL YOU ARE COMFORTABLE AND ABLE. NO OTHER CONCERNS AT THIS TIME. BED IN LOW POSITION,C ALL LITE IN REACH, CALLS APPROP
--- NOTE | 2018-05-17 06:28 | NUR ---
SHIFT SUMMARY: NO ACUTE CHANGES TO REPORT THIS SHIFT. PT A&O X 4, COOPERATIVE WITH CARE. PT IS SLEEPING T/O SHIFT, AWAKENING FOR SCHEDULED MEDS. PT SOAKS BED THIS AM, REPORTS THAT CATH LEAKS AND THIS IS NORMAL FOR HIM. COMPLETE BED CHANGED PERFORMED AND 1 BM NOTED. PT 2 PER STAND, PIVOT TRANSFER. NO OTHER ACUTE CHANGES TO REPORT. WILL CONT TO MMONITOR AND PROVIDE CARE UNTIL PRESUMED BY ONCOMING RN.
[2018-05-17] MEDS ORDERED: ACET325 PO (11:38)
[2018-05-17] MEDS ORDERED: GAVILAX17 GM PO (11:39)
[2018-05-17] MEDS ORDERED: Bactrim 400-801 EACH PO (11:40)
[2018-05-17] MEDS ORDERED: MEROPENEM-1 GM/50 ML IV (11:41)
--- NOTE | 2018-05-17 14:46 | NUR ---
PT LEFT HOME WITH AND DAUGHTER. ESCORTED VIA WHEELCHAIR. HOME HEALTH NUMBER GIVEN TO TO CALL WHEN THEY GET HOME. FRANCE BAEZ LEFT IN FOR HOME IV MEDICATIONS. HELMS LEFT IN DUE TO CHRONIC HOME USE. MORNING ANTIBIOTIC GIVEN PT WILL CONTINUE AT HOME WITH [facility]. STATES MEDICATION HAS BEEN SHIPPED TO HOME. NEW MEDICATIONS FAXED TO [facility]. ALL BELONGINGS WITH PT.
[2018-06-11] MEDS ORDERED: **INCOMPLETE MED REC (15:51)
[2018-06-11] MEDS ORDERED: DEXA4 PO (16:33)
[2018-06-11] MEDS ORDERED: Hair, Skin & N1 EACH PO (16:33)
[2018-06-11] MEDS ORDERED: OXYC10TA19 PO (16:34)
[2018-06-11] MEDS ORDERED: PREG50 PO (16:35)
[2018-06-11] MEDS ORDERED: SERT25 PO (16:36)
[2018-06-11] MEDS ORDERED: TOLT2ER PO (16:38)
[2018-06-11] MEDS ORDERED: XARELTO15 MG PO (17:00)
[2018-06-11] MEDS ORDERED: MS Contin15 MG PO (17:00)
[2018-06-11] MEDS ORDERED: SENN187 PO (17:07)
[2018-06-11] MEDS ORDERED: MYRBETRIQ25 MG PO (17:29)
[2018-06-11] MEDS ORDERED: LIDOCAINE VISCOUS 2% TOP (17:34)
== END 2018-05-17 13:16 | disposition home or self-care (01) | DRG 698 ==
LOC: ER 18:36 → MEDS 20:16 → ENPENDDIS 05-17 11:34 → MEDS 05-17 13:16
PROVIDERS: Emergency Medicine; Internal Medicine; Internal Medicine Infectious Disease; ADMIT Family Medicine
DX: T83.511A Infection and inflammatory reaction due to indwelling urethral catheter, initial encounter (principal); A41.9 Sepsis, unspecified organism; E87.1 Hypo-osmolality and hyponatremia; C34.90 Malignant neoplasm of unspecified part of unspecified bronchus or lung; B96.5 Pseudomonas (aeruginosa) (mallei) (pseudomallei) as the cause of diseases classified elsewhere; B95.62 Methicillin resistant Staphylococcus aureus infection as the cause of diseases classified elsewhere; N39.0 Urinary tract infection, site not specified; D64.9 Anemia, unspecified; G89.29 Other chronic pain; Z91.018 Allergy to other foods
CPT/HCPCS: 36415; 36416; 51702; 80048; 80202; 81001; 82565; 82947; 83605; 85025; 85027; 87077; 87086; 87186; 96365; 99285-25; C1751; J0692; J1650; J2185; J3370; J7030; J7050

== ENCOUNTER 2018-06-11 22:42 | Inpatient (IN) | payer MEDICARE ==
[~2018-06-11] VITALS: Ht 170.2 cm; Wt 74.4 kg
[~2018-06-11 22:42] MED LIST changes: +**INCOMPLETE MED REC; +Bactrim 400-801 EACH PO; +CHOL10002 PO; +CYAN500 PO; +DEXA4 PO; +GAVILAX17 GM PO; +LIDOCAINE VISCOUS 2% TOP; +MEROPENEM-1 GM/50 ML IV; +MS Contin15 MG PO; +MYRBETRIQ25 MG PO; +PREG50 PO; +SERT25 PO; +TOLT2ER PO; +XARELTO15 MG PO
[2018-06-11 23:30] LABS: BASOPHILS ABSOLUTE AUTO 0.02 K/mm3 (0.00-0.23); BASOPHILS PERCENT AUTO 0 % (0-2); EOSINOPHILS ABSOLUTE AUTO 0.01 K/mm3 (0.00-0.68); EOSINOPHILS PERCENT AUTO 0 % (0-6); Hematocrit 33.9 % (37.0-53.0); Hemoglobin 10.7 g/dL (13.5-17.5); IMMATURE GRAN ABSOLUTE AUTO 0.09 K/mm3 (0.00-0.10); IMMATURE GRAN PERCENT AUTO 1 % (0-1); LYMPHOCYTES ABSOLUTE AUTO 1.42 K/mm3 (0.84-5.20); LYMPHOCYTES PERCENT AUTO 10 % (21-46); MONOCYTES ABSOLUTE AUTO 0.43 K/mm3 (0.16-1.47); MONOCYTES PERCENT AUTO 3 % (4-13); Mean Corpuscular HGB 25.9 pg (26.0-34.0); Mean Corpuscular HGB Conc 31.6 g/dL (31.5-36.5); Mean Corpuscular Volume 82 fL (80-100); Mean Platelet Volume 8.5 fL (9.1-12.4); NEUTROPHILS PERCENT AUTO 86 % (41-73); Platelet Count 252 K/mm3 (150-400); RDW Coefficient Variation 17.6 % (11.7-14.2); RDW Standard Deviation 52.9 fL (35.1-46.3); Red Blood Cell Count 4.13 M/mm3 (4.30-5.90); White Blood Cell Count 13.67 K/mm3 (4.00-11.30)
[2018-06-11 23:49] LABS: Alanine Aminotransfer (ALT/SGP 16 U/L (12-78); Albumin, Blood 2.1 g/dL (3.4-5.0); Albumin/Globulin Ratio 0.5 (0.8-1.8); Alk Phos 99 U/L (50-136); Anion Gap 11 mmol/L (6-16); Aspartate Aminotrans (AST/SGOT 15 U/L (12-37); Bilirubin, Total 0.6 mg/dL (0.1-1.0); Blood Urea Nitrogen 18 mg/dL (8-24); Bun/Creatinine Ratio 28.7 (12.0-20.0); CO2, Blood 23 mmol/L (21-32); Calcium, Blood 8.1 mg/dL (8.5-10.1); Chloride, Blood 102 mmol/L (98-108); Creatinine, Blood 0.63 mg/dL (0.60-1.20); Glomerular Filtration Rate >60 (60-); Glucose, Blood 145 mg/dL (70-99); Potassium, Blood 3.4 mmol/L (3.5-5.5); Sodium, Blood 136 mmol/L (136-145); Total Protein, Blood 6.1 g/dL (6.4-8.2); Troponin I <0.015 ng/mL (0.000-0.040)
[2018-06-12 00:35] LABS: Source, Urine Clean Catch
[2018-06-12 00:38] LABS: Bilirubin, Urine Neg (Neg); Blood, Urine 5+ (Neg); Glucose Qualitative, Urine Neg (Neg); Ketones, Urine Neg (Neg); Leukocyte Esterase, Urine 3+ (Neg); Nitrite, Urine Pos (Neg); Protein, Urine 3+ (Neg); Specific Gravity, Urine 1.015 (1.003-1.022); Urobilinogen, Urine NORM (Normal); pH, Urine 6.5 (5.0-8.0)
[2018-06-12 00:41] LABS: Appearance, Urine Hazy (Clear); Color, Urine Yellow (P-Yellow)
[2018-06-12 00:45] LABS: Bacteria Mod /hpf; Red Blood Cells, Urine TNTC /hpf (0-2); Squamous Epithelial Cells Not Seen /hpf (Few); White Blood Cells, Urine TNTC /hpf (0-5); Yeast/Fungi Urine Mod /hpf
[2018-06-12 02:27] LABS: International Normalized Ratio 1.23; Prothrombin Time Results 12.8 Sec (9.7-11.5)
[2018-06-12 05:06] LABS: Hemoglobin 9.4 g/dL (13.5-17.5); Mean Corpuscular HGB 25.5 pg (26.0-34.0); Mean Corpuscular HGB Conc 31.3 g/dL (31.5-36.5); Mean Corpuscular Volume 82 fL (80-100); Platelet Count 242 K/mm3 (150-400); RDW Coefficient Variation 17.7 % (11.7-14.2); RDW Standard Deviation 52.3 fL (35.1-46.3); Red Blood Cell Count 3.68 M/mm3 (4.30-5.90); White Blood Cell Count 12.23 K/mm3 (4.00-11.30)
[2018-06-12 05:32] LABS: Alanine Aminotransfer (ALT/SGP 12 U/L (12-78); Albumin, Blood 1.8 g/dL (3.4-5.0); Albumin/Globulin Ratio 0.5 (0.8-1.8); Alk Phos 90 U/L (50-136); Anion Gap 9 mmol/L (6-16); Aspartate Aminotrans (AST/SGOT 18 U/L (12-37); Bilirubin, Total 0.4 mg/dL (0.1-1.0); Blood Urea Nitrogen 15 mg/dL (8-24); Bun/Creatinine Ratio 26.9 (12.0-20.0); CO2, Blood 23 mmol/L (21-32); Calcium, Blood 7.9 mg/dL (8.5-10.1); Chloride, Blood 103 mmol/L (98-108); Creatinine, Blood 0.56 mg/dL (0.60-1.20); Globulin, Blood 3.6 g/dL (2.2-4.0); Glomerular Filtration Rate >60 (60-); Glucose, Blood 134 mg/dL (70-99); Potassium, Blood 3.4 mmol/L (3.5-5.5); Sodium, Blood 135 mmol/L (136-145); Total Protein, Blood 5.4 g/dL (6.4-8.2)
--- NOTE | 2018-06-12 18:42 | NUR ---
END OF SHIFT SUMMARY; PT CAME TO PCU EARLY THIS AFTERNOON FROM ER WHERE HE HAD BEEN SINCE LATE LAST NIGHT. PT IS VERY PAINFULL ON ARRIVAL TO PCU. HE COMPLAINS WHEN BEING TURNED. HE HAS A BM ON ARRIVAL TO PCU AND ATTENDFS ARE CHANGED AND HE IS PLACED IN SUPINE POSITION. PT IS RECEIVING KCL 1.5 LITERS AT 75 PER HOUR. 2ND LITER IS RUNNING AND WILL PASS OFF IN SHIFT CHANGE TO ONCOMING THAT ONLY 500ML SHOULD INFUSE FROM 2ND BAG. CAME TO ROOM ORDERS PATIENT ON A REGULAR DIET. HE IS ABLE TO DRINK WITHOUT DIFF AND SWALLOWS PILLS WHOLE WITH WATER OR JUICE. HIS BILATERAL LOWER EXT HAVE DVT'S PER REPORT AND HE WAS STARTED ON HEPARIN IN THE ER. STOPS THE HEPARIN AND STARTS XARELTO. PT RECEIVES FIRST DOSE THIS AFTERNOON. PT IS COOPERATIVE WITH CARE AND ABLE TO MAKE HIS NEEDS KNOWN. WILL CONTINUE TO MONITOR THIS PATIENT UNTIL REPORT AND HAND OFF TO NOC SHIFT RN.
--- NOTE | 2018-06-12 19:30 | NUR ---
ASSUMED CARE PT RESTING IN ROOM COMFORTABLY. PER DAY SHIFT RN PT HAS BEEN VERY TIRED TODAY. PT WAS PAINFUL AND WEAKN T/O DAY AND REQUIRED 2 PERS ASSIST TO STAND TO BSC. PT HAS KCL INFUSING IN PIV. RESP EVEN UNLABORED ON RA. DENIES CP. HELMS CATH IN PLACE DRAINING DARK LANDRY URINE W/ SEDIMENT. PT HAS CHRONIC HELMS AND CATH WAS CHANGED IN ED PRIOR TO ARRIVAL ON UNIT AND SPECIMAN SENT OFF. BED ALARM ON FOR SAFETY. CALL LIGHT IN REACH.
--- NOTE | 2018-06-12 20:30 | NUR ---
BILAT PIV BLEEDING PIV IN LAC AND RH WERE BOTH EXCESSIVELY LEAKING BLOOD. PT BECAME ANXIOUS TO WHY IV'S WERE LEAKING. COBAN WAS PULLED FROM BOTH IV SITES AND FOUND TO BE VERY TIGHT TO THE POINT OF TOURIQUET LIKE PRESSURE. BOTH IV DRESSINGS REMOVED AND ATTEMPTED TO FLUSH. BOTH IV'S REMOVED D/T NON PATENCY. NEW IV INSERTED AND KCL INFUSING RESTARTED.
[2018-06-13 04:06] LABS: BASOPHILS ABSOLUTE AUTO 0.01 K/mm3 (0.00-0.23); BASOPHILS PERCENT AUTO 0 % (0-2); EOSINOPHILS ABSOLUTE AUTO 0.01 K/mm3 (0.00-0.68); EOSINOPHILS PERCENT AUTO 0 % (0-6); Hemoglobin 9.8 g/dL (13.5-17.5); IMMATURE GRAN ABSOLUTE AUTO 0.07 K/mm3 (0.00-0.10); IMMATURE GRAN PERCENT AUTO 1 % (0-1); LYMPHOCYTES ABSOLUTE AUTO 1.02 K/mm3 (0.84-5.20); LYMPHOCYTES PERCENT AUTO 10 % (21-46); MONOCYTES ABSOLUTE AUTO 0.34 K/mm3 (0.16-1.47); MONOCYTES PERCENT AUTO 3 % (4-13); Mean Corpuscular HGB 25.2 pg (26.0-34.0); Mean Corpuscular HGB Conc 30.6 g/dL (31.5-36.5); Mean Corpuscular Volume 82 fL (80-100); NEUTROPHILS ABSOLUTE AUTO 8.68 K/mm3 (1.96-9.15); NEUTROPHILS PERCENT AUTO 86 % (41-73); Platelet Count 254 K/mm3 (150-400); RDW Coefficient Variation 17.5 % (11.7-14.2); RDW Standard Deviation 51.5 fL (35.1-46.3); Red Blood Cell Count 3.89 M/mm3 (4.30-5.90); White Blood Cell Count 10.13 K/mm3 (4.00-11.30)
[2018-06-13 04:34] LABS: Anion Gap 11 mmol/L (6-16); Blood Urea Nitrogen 12 mg/dL (8-24); Bun/Creatinine Ratio 18.5 (12.0-20.0); CO2, Blood 22 mmol/L (21-32); Calcium, Blood 8.2 mg/dL (8.5-10.1); Chloride, Blood 108 mmol/L (98-108); Creatinine, Blood 0.65 mg/dL (0.60-1.20); Glomerular Filtration Rate >60 (60-); Glucose, Blood 96 mg/dL (70-99); Potassium, Blood 4.1 mmol/L (3.5-5.5); Sodium, Blood 141 mmol/L (136-145)
--- NOTE | 2018-06-13 05:33 | NUR ---
SHIFT SUMARY PT SLEEPING IN ROOM COMFORTABLY. PT HAD NO ACUTE CHANGES IN STATUS OVER NIGHT. PT SLEPT WELL. SOME LEAKAGE NOTED TO HELMS CATH WHEN PT WAS ASSISTED TO BSC. BALLON WAS DEFLATED AND NOTED TO HAVE 7ML OF WATER. BALLOON REINFLATED WITH 10ML WATER, LEAK STOPPED. PIV SALINE LOCKED. DENIES CP. RESP EVEN UNLABORED ON RA. CALL LIGHT IN REACH. BED ALARM ON FOR SAFETY. PT CALS APPROPRIATELY.
--- NOTE | 2018-06-13 11:52 | NUR ---
Assumed Care: Assumed care of pt at approx 0700. VSS. In no apparent sign of distress. Pt is A&Ox3 - unable to state date. Repositioning self in bed with reminders. C/o some pain in abd and medicated per orders. See shift assessment for detailed assessment. Dr. Raya at bedside this AM - no new orders at this time. at bedside and states that the pt is much more clear and appropriate in his mentation today. Pt is currently resting in bed with call light within reach. Denies any further questions, complaints or requests at this time. Will continue to monitor.
--- NOTE | 2018-06-13 18:45 | NUR ---
Shift Summary: No acute changes since initial shift assessment. VSS. In no apparent sign of distress. Pt is in no apparent sign of distress. Pt is A&Ox4. Calls appropriately. Pt has repositioned self regularly t/o the shift w/reminders. No changes in edema. No changes in mentation. Pt has remained on RA. No acute events or changes on tele. Pt is medical status, but no room assignment at this time. Pt is currently resting in bed with call light within reach. Denies any further questions, complaints or requests at this time. Will continue to montior until report is given to jadon JERRY.
--- NOTE | 2018-06-13 22:02 | NUR ---
TRANSFER NOTE PT MED NO TELE STATUS. 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 LUNG SOUNDS CLEAR T/O, SPO2 > 92% ON RA. VSS. CHRONIC HELMS PATENT AND DRAINING CLOUDY YELLOW URINE. PT TO BE TRANSFERED TO ROOM 328. REPORT CALLED TO CLARITZA Chris AT APPROX 2200.
--- NOTE | 2018-06-13 22:35 | NUR ---
PT TRANSFER FROM PCU. ASSUMING CARE OF PT. I AGREE WITH PRIOR RN ASSESSMENTS.
[2018-06-14 06:38] LABS: BASOPHILS PERCENT AUTO 0 % (0-2); EOSINOPHILS PERCENT AUTO 0 % (0-6); Hematocrit 29.6 % (37.0-53.0); Hemoglobin 9.2 g/dL (13.5-17.5); IMMATURE GRAN ABSOLUTE AUTO 0.03 K/mm3 (0.00-0.10); IMMATURE GRAN PERCENT AUTO 1 % (0-1); LYMPHOCYTES ABSOLUTE AUTO 0.87 K/mm3 (0.84-5.20); LYMPHOCYTES PERCENT AUTO 14 % (21-46); MONOCYTES ABSOLUTE AUTO 0.32 K/mm3 (0.16-1.47); MONOCYTES PERCENT AUTO 5 % (4-13); Mean Corpuscular HGB 25.6 pg (26.0-34.0); Mean Corpuscular HGB Conc 31.1 g/dL (31.5-36.5); Mean Corpuscular Volume 82 fL (80-100); Mean Platelet Volume 8.9 fL (9.1-12.4); NEUTROPHILS ABSOLUTE AUTO 4.97 K/mm3 (1.96-9.15); NEUTROPHILS PERCENT AUTO 80 % (41-73); Platelet Count 260 K/mm3 (150-400); RDW Coefficient Variation 17.2 % (11.7-14.2); RDW Standard Deviation 51.6 fL (35.1-46.3); White Blood Cell Count 6.19 K/mm3 (4.00-11.30)
--- NOTE | 2018-06-14 06:48 | NUR ---
SHIFT SUMMARY: PCU TRANSFER EARLIER IN SHIFT. PT IS A&O X 4, SBA. L LEG SWOLLEN AND ELEVATED ON PILLOWS. A& O X 4, ON ROOM AIR. LS CLEAR. NO TELE. HELMS CATH PATENT + FLOWING. DENIES PAIN. NO OTHER CHANGES TO REPORT. WILL CONT OT MONITOR AND PROVIDE CARE UNTIL PRESUMED BY ONCOMING RN.
[2018-06-14 06:58] LABS: Anion Gap 10 mmol/L (6-16); Blood Urea Nitrogen 12 mg/dL (8-24); CO2, Blood 24 mmol/L (21-32); Calcium, Blood 8.5 mg/dL (8.5-10.1); Chloride, Blood 106 mmol/L (98-108); Creatinine, Blood 0.63 mg/dL (0.60-1.20); Glomerular Filtration Rate >60 (60-); Glucose, Blood 99 mg/dL (70-99); Potassium, Blood 4.1 mmol/L (3.5-5.5); Sodium, Blood 140 mmol/L (136-145)
--- NOTE | 2018-06-14 08:00 | NUR ---
PT PLEASANT COOP A/O. WANTS TO KNOW WHEN DR TO SEE. H/R REG, NO MURMER NOTED. NO TELE. LUNGS CLEAR, RESP EASY,UNLABORED. ON R.A. BT X4 LAST BM YEST. VOIDS HELMS CATH CLEAR YELLOW FLUID DRAINING. SOME SEDIMENT. BED IN LOW POSITION, CALL LITE IN REACH, CALLS APPROP. AT BEDSIDE.
--- NOTE | 2018-06-14 11:53 | NUR ---
DR CONN STATES PT TO LEAVE WITH HELMS. IT IS CHRONIC.
--- NOTE | 2018-06-14 14:20 | NUR ---
DISCHARGE REVIEWED WITH PT AND . PT VERBALIZED UNDERSTANDING. MED AND INSTRUCTIONS. IV PULLED INTACT. NO TELE. PT WHEELED TO DOOR AT 1440
--- NOTE | 2018-06-14 14:47 | NUR ---
PT WHEELED TO DOOR BY AIDE. AT 1444
== END 2018-06-14 14:48 | disposition home or self-care (01) | DRG 872 ==
LOC: ER 22:42 → MEDS 06-12 02:51 → ERHOLD 06-12 02:51 → PCU 06-12 13:10 → MEDS 06-13 22:41 → ENPENDDIS 06-14 11:36 → MEDS 06-14 14:48
PROVIDERS: Hospitalist; Physician Assistant; ADMIT Internal Medicine
DX: A41.9 Sepsis, unspecified organism (principal); N39.0 Urinary tract infection, site not specified; C34.90 Malignant neoplasm of unspecified part of unspecified bronchus or lung; N32.2 Vesical fistula, not elsewhere classified; G40.419 Other generalized epilepsy and epileptic syndromes, intractable, without status epilepticus; G93.40 Encephalopathy, unspecified; I82.403 Acute embolism and thrombosis of unspecified deep veins of lower extremity, bilateral; C76.3 Malignant neoplasm of pelvis; N40.1 Benign prostatic hyperplasia with lower urinary tract symptoms; Z85.46 Personal history of malignant neoplasm of prostate; B96.5 Pseudomonas (aeruginosa) (mallei) (pseudomallei) as the cause of diseases classified elsewhere; R33.9 Retention of urine, unspecified; E87.6 Hypokalemia; G89.3 Neoplasm related pain (acute) (chronic); I25.10 Atherosclerotic heart disease of native coronary artery without angina pectoris
CPT/HCPCS: 36415; 70450; 71260; 74177; 80048; 80053; 81001; 82378; 82728; 83540; 83550; 83605; 84145; 84484; 85025; 85027; 85610; 85730; 87040; 87077; 87086; 87186; 93005; 93010; 96361; 96365-59; 96366; 96367-59; 96374; 96375-59; 97162; 97530; 99283-25; 99285-25; G0103; J0744; J1644; J2185; J3010; J3480; J7030; J7050; Q9967